=== PATIENT | male | born 1970 | race Hispanic/Latino ===

== ENCOUNTER 2020-09-08 07:43 | Emergency (ER) | payer BC ==
[~2020-09-08] VITALS: Ht 172.7 cm; Wt 108.0 kg
[2020-09-08] MEDS ORDERED: METFORMIN HCL1000 MG PO (08:00)
[2020-09-08] MEDS ORDERED: LISINOPRIL10 MG PO (08:00)
[2020-09-08] MEDS ORDERED: GLIPIZIDE ER5 M1 PO (08:01)
[2020-09-08] MEDS ORDERED: ROSUVASTATIN CA10 MG PO (08:01)
[2020-09-08] MEDS ORDERED: ASPIRIN81 MG PO (08:02)
[2020-09-08 08:41] LABS: HEMATOCRIT 41.8 % (39.0-50.0); HEMOGLOBIN 14.2 g/dl (14.0-18.0); IMMATURE GRANULOCYTES 0.7 % (0.0-5.0); MEAN CELL VOLUME 82.1 fL CALC (80.0-100.0); MEAN CORPUSCULAR HGB 27.9 pG CALC (26.0-32.0); NEUT# 8.02 thou/uL (1.82-7.42); RED BLOOD COUNT 5.09 mill/uL (4.70-6.10); RED CELL DISTRI WIDTH 11.7 % (11.5-15.5)
[2020-09-08 08:42] LABS: URINE BILIRUBIN - DIPSTICK NEGATIVE (NEGATIVE); URINE BLOOD DIPSTICK SMALL (NEGATIVE); URINE COLOR YELLOW; URINE GLUCOSE - DIPSTICK >=1000 mg/dL (NEGATIVE); URINE KETONE TRACE mg/dL (NEGATIVE); URINE LEUK ESTERASE NEGATIVE (NEGATIVE); URINE NITRITE - DIPSTICK NEGATIVE (Negative); URINE PH 5.5 (4.5-8.0); URINE PROTEIN - DIPSTICK NEGATIVE (NEG-TRACE); URINE UROBILINOGEN - DIPSTICK 0.2 E.U./dL (0.2)
[2020-09-08 08:44] LABS: URINE EPITHELIAL CELLS FEW EPI/hpf (0-FEW); URINE RBC 0-2 RBC/hpf (0-5)
[2020-09-08 08:55] LABS: ALBUMIN 4.1 g/dL (3.2-5.0); ALKALINE PHOSPHATASE 116 u/l (38-126); ANION GAP 14 (6-22 (CALC)); BILIRUBIN, TOTAL 0.7 mg/dL (0.0-1.4); BUN 13 mg/dL (9-20); BUN/CREATININE RATIO 28 (12-20 (CALC)); CARBON DIOXIDE 24 mmol/l (22-30); CHLORIDE 99 mmol/l (95-108); CREATININE 0.5 mg/dL (0.7-1.3); GFR > 60 ML/MIN (>=60 (CALC)); GFR FOR AFR.AMER. > 60 ML/MIN (>=60 (CALC)); LIPASE 37 u/l (23-300); SGOT/AST 18 u/l (17-59); SODIUM 132 mmol/l (137-146); TOTAL PROTEIN 7.5 g/dL (6.3-8.2)
[2020-09-08] MEDS ORDERED: OMNI-PAC300 MG PO (09:01)
[2020-09-08 09:31] VITALS: BP 117/83
--- NOTE | 2020-09-10 08:55 | NUR ---
RESULTS CALLED TO . PRELIMINARY RESULTS SHOW GRAM (+) COCCI IN 1/4 BLOOD CULTURE VIALS. PATIENT DID NO ANSWER PHONE AT 0830AM. WE WILL TRY AGAIN LATER.
--- NOTE | 2020-09-11 14:24 | NUR ---
Final blood culture results of staph aureus growing in 1/[address] Medrano. Most likely a contaminant as pt is asymptomatic and only in 1/4. No new orders at this time.
== END 2020-09-08 09:33 | disposition home or self-care (01) | DRG 696 ==
LOC: ED 07:43
PROVIDERS: Family Medicine
PROC: 0T9B70Z Drainage of Bladder with Drainage Device, Via Natural or Artificial Opening (ICD-10-PCS; principal; 2020-09-08)
DX: R33.9 Retention of urine, unspecified (principal); E11.9 Type 2 diabetes mellitus without complications; Z79.84 Long term (current) use of oral hypoglycemic drugs

== ENCOUNTER 2021-06-30 09:58 | Inpatient (IN) | payer BC ==
[~2021-06-30] VITALS: Ht 172.7 cm; Wt 90.9 kg
[~2021-06-30 09:58] MED LIST: ASPIRIN81 MG PO; GLIPIZIDE ER5 M1 PO; LISINOPRIL10 MG PO; METFORMIN HCL1000 MG PO; OMNI-PAC300 MG PO; ROSUVASTATIN CA10 MG PO
--- NOTE | 2021-06-30 10:28 | NUR ---
WHILE PT WAITING OUTSIDE, SYCOPAL EPISODE FROM STANDING POSITION, HEAD AND BACK STRUCK CEMENT WALL, +LOC, RAPID RESPONSE CALLED, MD AND FISH FILLETER RESPONDED WITH PLASTER MACHINE OPERATOR. C-SPINE HELD UNTIL MD AT SIDE. C-COLLAR APPLIED IMMEDIATELY UNTIL PHYSICIAN CLEARED AND REMOVED. PT AWOKE, REPORTS COMING FOR "DEHYDRATION" PT PLACED IN WHEELCHAIR, IV ACCESS ESTABLISHED, LABS OBTAINED, PT TRANSPORTED TO RADIOLOGY FOR SCANS PER MD ORDER
--- NOTE | 2021-06-30 10:40 | NUR ---
RETURNED TO ROOM 11 IN ER.
[2021-06-30 10:57] LABS: HEMOGLOBIN 15.4 g/dl (14.0-18.0); IMMATURE GRANULOCYTES 0.2 % (0.0-5.0); MEAN CELL VOLUME 83.3 fL CALC (80.0-100.0); MEAN CORPUSCULAR HGB 28.5 pG CALC (26.0-32.0); MEAN CORPUSCULAR HGB CONC 34.2 g/dL CAL (32.0-36.0); NEUT# 6.99 thou/uL (1.82-7.42); RED BLOOD COUNT 5.4 mill/uL (4.70-6.10); RED CELL DISTRI WIDTH 12.7 % (11.5-15.5)
[2021-06-30 11:17] LABS: ALBUMIN 4.9 g/dL (3.2-5.0); ALKALINE PHOSPHATASE 66 u/l (38-126); ANION GAP 25 (6-22 (CALC)); BILIRUBIN, TOTAL 0.7 mg/dL (0.0-1.4); CARBON DIOXIDE 21 mmol/l (22-30); CHLORIDE 88 mmol/l (95-108); CPK 274 u/l (52-200); GFR 8 ML/MIN (>=60 (CALC)); GFR FOR AFR.AMER. 9 ML/MIN (>=60 (CALC)); LIPASE 282 u/l (23-300); MAGNESIUM 2.3 mg/dL (1.6-2.3); POTASSIUM 4.4 mmol/l (3.5-5.1); SGOT/AST 23 u/l (17-59); SODIUM 130 mmol/l (137-146); TOTAL PROTEIN 7.9 g/dL (6.3-8.2)
[2021-06-30 11:31] LABS: BUN 91 mg/dL (9-20); BUN/CREATININE RATIO 12 (12-20 (CALC)); CREATININE 7.4 mg/dL (0.7-1.3)
--- NOTE | 2021-06-30 11:37 | NUR ---
EKG COMPLETED AND GIVEN TO
[2021-06-30] MEDS ORDERED: JANUVIA100 MG PO (13:02)
[2021-06-30] MEDS ORDERED: RYBELSUS3 MG PO (13:03)
[2021-06-30] MEDS ORDERED: RYBELSUS7 MG PO (13:03)
[2021-06-30] MEDS ORDERED: OMEPRAZOLE DR40 MG PO (13:03)
[2021-06-30] MEDS ORDERED: TERAZOSIN5 MG PO (13:04)
--- NOTE | 2021-06-30 13:53 | NUR ---
Reassessment of patient completed. No distress noted.
--- NOTE | 2021-06-30 18:25 | NUR ---
1809: REPORT RECEIVED FROM Sylvia MUNIZ RN. PT. SITTING UP IN BED, LOOKING AROUNG. NO VOICED C/O'S. 1824: UP TO THE BR TO VOID QS. URINE SAMPLE SENT TO LAB.
[2021-06-30 18:38] LABS: URINE BILIRUBIN - DIPSTICK NEGATIVE (NEGATIVE); URINE BLOOD DIPSTICK SMALL (NEGATIVE); URINE COLOR YELLOW; URINE GLUCOSE - DIPSTICK NEGATIVE (NEGATIVE); URINE KETONE NEGATIVE (NEGATIVE); URINE LEUK ESTERASE NEGATIVE (NEGATIVE); URINE PROTEIN - DIPSTICK NEGATIVE (NEG-TRACE); URINE UROBILINOGEN - DIPSTICK 0.2 E.U./dL (0.2)
[2021-06-30 18:39] LABS: URINE NITRITE - DIPSTICK NEGATIVE (Negative); URINE RBC 0-2 RBC/hpf (0-5); URINE WBC 0-2 WBC/hpf (0-5)
--- NOTE | 2021-07-01 00:52 | NUR ---
2000-nsr 78 BPM no ectopy. denies nausea or headache. pupils equally reactive to light. bilateral hand rn baby congruent. both sides of tongue with areas of redness. Iv site right AC without signs of infiltration. 111/57-78-100% 16. 98.0. 2124-95/57-82-100% 16 2224-103/50-76-100%-16 2315-to rest room voided 500cc+/-. [id number]%-16 0024-101/61-74-100%.
[2021-07-01 05:00] LABS: HEMATOCRIT 36.6 % (39.0-50.0); HEMOGLOBIN 11.6 g/dl (14.0-18.0); MEAN CELL VOLUME 99.5 fL CALC (80.0-100.0); MEAN CORPUSCULAR HGB 31.5 pG CALC (26.0-32.0); MEAN CORPUSCULAR HGB CONC 31.7 g/dL CAL (32.0-36.0); RED BLOOD COUNT 3.68 mill/uL (4.70-6.10); RED CELL DISTRI WIDTH 14.6 % (11.5-15.5)
[2021-07-01 05:13] LABS: CREATININE 1.6 mg/dL (0.7-1.3); POTASSIUM 3.4 mmol/l (3.5-5.1)
[2021-07-01 05:14] LABS: ALBUMIN 3.3 g/dL (3.2-5.0); MAGNESIUM 1.7 mg/dL (1.6-2.3)
[2021-07-01 08:13] VITALS: BP 101/56
--- NOTE | 2021-07-01 12:02 | NUR ---
1030-HOSPITALIST ROUNDED ON PT. PLAN IS TO DISCHARGE TO HOME TODAY.
[2021-07-01] MEDS ORDERED: ZOFRAN4 MG/TAB PO (15:09)
--- NOTE | 2021-07-01 16:10 | NUR ---
1609: Discharge instructions given. Patient verbalizes understanding of same. Discharged in stable condition via Wheelchair to Home with family. All belongings sent with pt.
== END 2021-07-01 16:07 | disposition home or self-care (01) | DRG 683 ==
LOC: ED 09:58 → ED-I 11:29 → ED 11:29 → ED-I 11:52 → ED 13:32 → MSH 13:33 → ED-I 13:33 → MSH 16:00
PROVIDERS: Family Medicine; Nurse Practitioner; ADMIT Hospitalist; ATTEND Hospitalist
DX: N17.9 Acute kidney failure, unspecified (principal); E87.1 Hypo-osmolality and hyponatremia; E87.2 Acidosis; I95.9 Hypotension, unspecified; E86.9 Volume depletion, unspecified; I10 Essential (primary) hypertension; E11.9 Type 2 diabetes mellitus without complications; E78.5 Hyperlipidemia, unspecified; K21.9 Gastro-esophageal reflux disease without esophagitis; E86.0 Dehydration; Z79.84 Long term (current) use of oral hypoglycemic drugs; Z20.822 Contact with and (suspected) exposure to COVID-19